=== PATIENT | male | born 1990 | race Two or more races ===

== ENCOUNTER 2025-01-09 20:37 | Emergency (ER) | payer SELFPAY ==
[2025-01-09 20:39] VITALS: BP 144/79; PULSE 79; RESP 16; TEMP 36.6; O2SAT 100
--- NOTE | 2025-01-09 23:55 | EX.ED.DYSGE1 ---
HPI History of Present Illness Chief Complaint: Back Narrative Narrative: Patient is a 34-year-old male with no known significant past medical history who presents to the emergency department the chief complaint of left back pain radiating to his left foot. 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 They state that he has not take anything for pain prior to arrival. Patient states that he has never had anything like this happen before. PFSH PFSH Medical History no medical history Home Medications ?Medication ?Instructions ?Recorded ?Last Taken ?Type cyclobenzaprine 5 mg tablet 5 mg PO TID PRN muscle spasm 4 01/10/25 Unknown Rx days #12 tabs ondansetron 4 mg disintegrating 4 mg PO Q6H PRN nausea and 01/10/25 Unknown Rx tablet vomiting #20 tabs oxycodone-acetaminophen 5 mg-325 1 tab PO Q6H PRN pain 2 days #8 01/10/25 Unknown Rx mg tablet (Endocet) tabs Allergy/AdvReac Type Severity Reaction Status Date / Time No Known Allergies Allergy Verified 01/09/25 20:38 Family History no significant family his Surgical History no surgical history Social History Smoking Status: Never smoker ROS ROS ED ROS Narrative Constitutional: Denies fevers, chills, headaches, lightness, dizziness Eyes: Denies change in vision double vision blurry vision Cardiovascular: Denies chest pain or palpitations Respiratory: Denies coughing wheezing shortness of breath Abdomen: Denies abdominal pain nausea vomit diarrhea. States that he is having normal bowel movements for himself : Denies urinary symptoms states that he is urinating normally for himself Neurological: Denies numbness, weakness, tingling Musculoskeletal: Complains of left back pain rating to his left foot as noted above Skin: Denies rashes or lesions EXAM Physical Exam Narrative Exam Narrative: General: Patient was lying in bed rest comfortably did not appear to be in acute distress Head: Atraumatic, normocephalic Eyes: PERRL bilateral, EOMI bilateral, no conjunctival injection noted Neck: Soft, supple, trachea midline Cardiovascular: Regular rate and rhythm no murmurs gallops rubs or Respiratory: Clear to auscultation bilaterally no rales rhonchi or wheezes noted Abdomen: Soft, nondistended Extremities: +4/5 strength noted in the left lower extremities limited secondary to pain, +5/5 strength noted in the right lower extremity in the bilateral upper extremities, DP pulses +2/4 in the bilateral lower extremities Neurological: Patient following commands knew that he was at [facility] years 2024. Sensation grossly intact in the bilateral lower extremities, no saddle anesthesia noted Skin: Warm, dry, intact no rashes or lesions noted Const Vital Signs: 01/09/25 20:39 01/10/25 00:38 Temperature 97.8 F Temperature Source Temporal Pulse Rate 79 77 Respiratory Rate 16 20 H Blood Pressure 144/79 H 122/69 H Blood Pressure Mean 100 86 Pulse Ox 100 100 Oxygen Delivery Method Room Air MDM MDM MDM Narrative Medical decision making narrative: Patient is a 34-year-old male who presented to the emerged part with chief complaint of left back pain rating to his left foot. This happened 8 days ago. On the differential diagnose includes but not limited to musculoskeletal strain, herniated disc, nephrolithiasis or urolithiasis patient has no history of this though. Once workup is obtained reviewed he will be reevaluated. Patient be given Valium and Toradol. Patient's x-ray of his lumbar spine reviewed by myself and by radiology which showed no acute fractures or malalignment. Reevaluation the patient is feeling much improved would like to go home this point time. He was advised to rotate Tylenol and ibuprofen [id number] as well as use the muscle relaxer as needed for spasming. He is advised to use the Percocet and Zofran for severe pain and not to operate anything under the influence of the Percocet or the muscle relaxer. He is encouraged to follow-up with her primary care physician and return if worsening symptoms or concerns. He is agreeable this plan as well as family at bedside all question concerns answered is discharged home in stable condition. Radiography Diagnostic Testing: Clinical Impression(s) from Imaging Studies Lumbar Spine X-Ray 01/10/25 00:00 IMPRESSION: Study appears within limits as above. Reading Location: [id number] Discharge Plan Triage Chief Complaint: Back ED Provider: Ricky Park Dx/Rx/DC Orders Clinical Impression: Back pain Prescriptions: New cyclobenzaprine 5 mg tablet 5 mg PO TID PRN (Reason: muscle spasm) 4 Days Qty: 12 0RF ondansetron 4 mg tablet,disintegrating 4 mg PO Q6H PRN (Reason: nausea and vomiting) Qty: 20 0RF oxycodone-acetaminophen [Endocet] 5-325 mg tablet 1 tab PO Q6H PRN (Reason: pain) 2 Days Qty: 8 0RF Primary Care Provider: Care Physician,No Primary Referrals: Care Physician,No Primary [Primary Care Provider] - Cori Garza [facility], [employer]NICIAN-[facility] [[facility]] - Activity Restrictions/Additional Instructions: Your x-ray did not show anything broken today. Rotate Tylenol and ibuprofen [id number] when you do this you can take something every 3 hours. Max dose Tylenol is 4000 mg max dose of ibuprofen is 3200 mg. Use muscle relaxer as prescribed. Take the Endocet and Zofran together as this will upset your stomach. Do not operate anything under the influence of the narcotic or the muscle relaxer. Return with worsening symptoms or concerns. Print Language: Welsh Disposition Disposition: Home, Self Care
--- NOTE | 2025-01-10 | RAD_ITS ---
PROCEDURE: L/S SPINE MIN 4 VIEWS 01/10/2025 REASON FOR EXAM: PAIN ON LEFT RADIATING TO FOOT TECHNIQUE: Five views; AP, bilateral oblique, lateral and coned-down L5-S1 view COMPARISON: None available FINDINGS: 5 [id number] lumbar vertebral type bodies. No fracture or malalignment. No spondylolysis. The disc spaces appear within limits. RAD/L/S Spine Min 4 Views IMPRESSION: Study appears within limits as above. Reading Location: [id number]
[2025-01-10] MEDS: diazePAM 5 MG Tablet 2.5 MG PO (00:27)
[2025-01-10] MEDS: Ketorolac 30 MG/ML Syringe IM (00:27)
[2025-01-10 00:38] VITALS: BP 122/69; PULSE 77; RESP 20; O2SAT 100
[2025-01-10 01:06] VITALS: BP 122/69; PULSE 77; RESP 20; TEMP 36.8; O2SAT 100
== END 2025-01-10 01:07 | disposition home or self-care (01) ==
PROVIDERS: Emergency Provider Emergency Medicine; Visit Provider Emergency Medicine
DX: M54.9 Dorsalgia, unspecified (principal); M79.672 Pain in left foot
CPT/HCPCS: 72110; 96372; 99282